=== PATIENT | female | born 1990 ===

== ENCOUNTER 2023-02-17 20:10 | Inpatient (IN) | payer OTHER ==
[2023-02-17] MEDS ORDERED: Methylergonovine 0.2 MG/1 ML Amp IM PRN (23:09)
[2023-02-17] MEDS ORDERED: Water For Irrigation,Sterile 1,000 ML Container IRR PRN (23:09)
[2023-02-17] MEDS ORDERED: Tranexamic Acid IN NACL,ISO-OS 1,000 MG in Premix Bag 1 BAG IV PRN ×2 (23:09)
[2023-02-17] MEDS ORDERED: Ondansetron 4 MG/2 ML SDV IVPUSH PRN (23:09)
[2023-02-17] MEDS ORDERED: Sodium Chloride 0.9% 10 ML Syringe FLUSH PRN (23:09)
[2023-02-17] MEDS ORDERED: Carboprost Tromethamine 250 MCG/1 mL Vial IM PRN (23:09)
[2023-02-17] MEDS ORDERED: Sodium Chloride 0.9% 20 ML SDV IV PRN (23:09)
[2023-02-17] MEDS ORDERED: Lidocaine 1% 50 ML MDV INJECT PRN (23:09)
[2023-02-17] MEDS ORDERED: Misoprostol 200 MCG Tab PO PRN (23:09)
[2023-02-17] MEDS ORDERED: Terbutaline 1 MG/ML SDV SUBCUT PRN (23:09)
[2023-02-17] MEDS ORDERED: Sodium Chloride 0.9% 2.5 ML Syringe FLUSH PRN (23:09)
[2023-02-17] MEDS ORDERED: Oxytocin/0.9 % Sodium Chloride 30 UNIT/500 ML BAG IV SCH ×2 (23:15)
[2023-02-17] MEDS ORDERED: Nalbuphine HCl 10 MG/ 1ML Amp IVPUSH PRN (23:20)
[2023-02-17] MEDS ORDERED: Misoprostol 25 MCG (1/4 of 100 MCG) Tab VAG PRN (23:30)
[2023-02-18 00:13] LABS: HEMATOCRIT 36.7 % (36.0-46.0); HEMOGLOBIN 12.3 g/dL (12.0-16.0); MEAN CORPUSCULAR HEMOGLOBIN 32.4 pg (27.0-32.0); MEAN CORPUSCULAR HGB CONC 33.5 g/dL (31.0-37.0); MEAN CORPUSCULAR VOLUME 96.6 fL (80.0-98.0); PLATELET COUNT,PLT 202 K/uL (150-400); WHITE BLOOD CELL COUNT,WBC 10.99 K/uL (4.0-11.0)
[2023-02-18] MEDS: Lactated Ringers 1,000 ML IV SCH ×4 (00:20→12:53)
[2023-02-18] MEDS ORDERED: Misoprostol 25 MCG (1/4 of 100 MCG) Tab VAG PRN (05:30)
[2023-02-18] MEDS ORDERED: Bupivacaine 0.5% 10 ML SDV ONE (12:18)
[2023-02-18] MEDS ORDERED: Ropivacaine/PF 400 MG/200 ML PCA ONE (12:19)
[2023-02-18] MEDS ORDERED: Phenylephrine HCl 0.5 MG/5 ML AMP IVPUSH PRN (12:47)
[2023-02-18] MEDS ORDERED: ePHEDrine 50 MG/ML SDV IVPUSH PRN ×2 (12:47)
[2023-02-18] MEDS ORDERED: Ropivacaine HCl/PF 400 MG in Premix Bag 1 BAG EPIDUR SCH (13:00)
[2023-02-18] MEDS ORDERED: Bupivacaine 0.25% 10 ML SDV ONE (18:33)
[2023-02-18] MEDS ORDERED: oxyCODONE 5 MG Tab PO PRN (20:35)
[2023-02-18] MEDS ORDERED: Acetaminophen 500 MG Tab PO PRN (20:35)
[2023-02-18] MEDS ORDERED: Witch Hazel Medicated Pads 40/Jar TOP PRN (20:35)
[2023-02-18] MEDS ORDERED: Lanolin 100% Cream 7 GM Tube TOP PRN (20:35)
[2023-02-18] MEDS ORDERED: Bisacodyl 10 MG Supp RECTAL PRN (20:35)
[2023-02-18] MEDS ORDERED: Ibuprofen 400 MG Tab PO PRN (20:35)
[2023-02-18] MEDS ORDERED: Benzocaine/Menthol 20%-0.5% Spray 78 GM Cannister TOP PRN (20:35)
[2023-02-18 20:54] LABS: PH,UMBILICAL ARTERIAL 7.305 (7.18-7.38); PH,UMBILICAL VENOUS 7.395 (7.25-7.45)
[2023-02-18] MEDS: Ibuprofen 800 MG Tab PO PRN (22:26)
[2023-02-18] MEDS: Acetaminophen 500 MG Tab PO PRN (22:28)
[2023-02-19] MEDS: Acetaminophen 500 MG Tab PO PRN ×2 (04:01→16:33)
[2023-02-19 05:56] LABS: HEMATOCRIT 30.2 % (36.0-46.0); HEMOGLOBIN 10.1 g/dL (12.0-16.0)
[2023-02-19] MEDS: Ibuprofen 800 MG Tab PO PRN ×3 (08:03→20:07)
[2023-02-19] MEDS: Docusate Sodium 100 MG Cap PO PRN ×2 (08:03→20:07)
[2023-02-20] MEDS: Acetaminophen 500 MG Tab PO PRN (00:07)
[2023-02-20] MEDS: Ibuprofen 800 MG Tab PO PRN (07:40)
[2023-02-20] MEDS: Docusate Sodium 100 MG Cap PO PRN (09:05)
[2023-02-20] MEDS ORDERED: Measles, Mumps & Rubella Vaccine 0.5 ML SDV SUBCUT ONE (11:29)
== END 2023-02-20 12:55 | disposition home or self-care (01) | DRG 768 ==
LOC: MW.OB 20:10 → OBSVTOIN 02-18 20:10 → MW.OB 02-18 22:54
PROVIDERS: ADMIT Obstetrics & Gynecology; ATTEND Obstetrics & Gynecology
PROC: 10E0XZZ Delivery of Products of Conception, External Approach (ICD-10-PCS; principal; 2023-02-18)
PROC: 0DQR0ZZ Repair Anal Sphincter, Open Approach (ICD-10-PCS; 2023-02-18)
PROC: 10907ZC Drainage of Amniotic Fluid, Therapeutic from Products of Conception, Via Natural or Artificial Opening (ICD-10-PCS; 2023-02-18)
PROC: 3E0P7VZ Introduction of Hormone into Female Reproductive, Via Natural or Artificial Opening (ICD-10-PCS; 2023-02-18)
PROC: 3E033VJ Introduction of Other Hormone into Peripheral Vein, Percutaneous Approach (ICD-10-PCS; 2023-02-18)
PROC: 3E0R3BZ Introduction of Anesthetic Agent into Spinal Canal, Percutaneous Approach (ICD-10-PCS; 2023-02-18)
PROC: 00HU33Z Insertion of Infusion Device into Spinal Canal, Percutaneous Approach (ICD-10-PCS; 2023-02-18)
PROC: 3E0134Z Introduction of Serum, Toxoid and Vaccine into Subcutaneous Tissue, Percutaneous Approach (ICD-10-PCS; 2023-02-20)
DX: O13.4 Gestational [pregnancy-induced] hypertension without significant proteinuria, complicating childbirth (principal); Z37.0 Single live birth; Z3A.39 39 weeks gestation of pregnancy; O70.20 Third degree perineal laceration during delivery, unspecified; Z23 Encounter for immunization
CPT/HCPCS: 01967; 36415; 51702; 59025; 59409; 82803; 85014; 85018; 85027; 86592; 86850; 86900; 86901; 90471; 90707; A9270-GY; J2405; J2590; J2795; J3490; J7120